=== PATIENT | female | born 1990 | race Caucasian/White ===

== ENCOUNTER 2021-06-26 17:07 | Emergency (ER) | payer OTHER ==
[2021-06-26] MEDS ORDERED: Morphine 4 MG/ML VIAL ONE (17:21)
[2021-06-26] MEDS ORDERED: Ketorolac Tromethamine 30 MG/ML VIAL ONE (17:58)
== END 2021-06-26 18:50 | disposition home or self-care (01) ==
LOC: CSHERS 17:07
DX: S83.005A Unspecified dislocation of left patella, initial encounter (principal); F17.210 Nicotine dependence, cigarettes, uncomplicated; W01.0XXA Fall on same level from slipping, tripping and stumbling without subsequent striking against object, initial encounter
CPT/HCPCS: 27560; 96374; 96375; J1885; J2270